=== PATIENT | female | born 1945 | race African-American/Black ===

== ENCOUNTER 2019-12-07 07:47 | Emergency (ER) | payer MEDICARE, MEDICAID ==
[~2019-12-07] VITALS: Ht 165.1 cm; Wt 64.0 kg
[2019-12-07] MEDS ORDERED: IBUPROFEN 600MG TABLET PO ONE (10:30)
[2019-12-07] MEDS ORDERED: TRAMADOL 50MG TABLET PO ONE (10:30)
[2019-12-07 11:59] VITALS: BP 136/72
== END 2019-12-07 12:00 | disposition home or self-care (01) ==
LOC: ER 07:47
DX: S70.02XA Contusion of left hip, initial encounter (principal); E11.9 Type 2 diabetes mellitus without complications; I10 Essential (primary) hypertension; Z96.659 Presence of unspecified artificial knee joint; W01.0XXA Fall on same level from slipping, tripping and stumbling without subsequent striking against object, initial encounter; Y93.89 Activity, other specified; Y92.012 Bathroom of single-family (private) house as the place of occurrence of the external cause
CPT/HCPCS: 73502; 99283

== ENCOUNTER 2020-02-02 15:16 | Emergency (ER) | payer MEDICARE, MEDICAID ==
[~2020-02-02] VITALS: Ht 165.1 cm; Wt 73.0 kg
[2020-02-02 15:27] VITALS: BP 109/52
== END 2020-02-02 17:23 | disposition left against medical advice (07) ==
LOC: ER 15:16
DX: Z53.21 Procedure and treatment not carried out due to patient leaving prior to being seen by health care provider (principal)

== ENCOUNTER 2020-04-11 22:00 | Inpatient (IN) | payer MEDICARE, MEDICAID ==
[~2020-04-11] VITALS: Ht 170.2 cm; Wt 59.0 kg
[2020-04-11 22:45] VITALS: BP 96/57
[2020-04-12] MEDS ORDERED: DEXTROSE 50% WATER 50ML SYRINGE IV PRN (03:45)
[2020-04-12 04:00] VITALS: BP 95/52
[2020-04-12] MEDS: BLOOD SUGAR DIAGNOSTIC STRIP TEST SCH ×4 (07:20→20:33)
[2020-04-12] MEDS: INSULIN LISPRO 100 UNITS/ML SUBCUT SCH ×4 (07:50→20:33)
[2020-04-12] MEDS ORDERED: LORAZEPAM 2MG/ML CPJ IV PRN (08:00)
[2020-04-12] MEDS ORDERED: LORAZEPAM 2MG/ML CPJ IV NR (08:00)
[2020-04-12 08:31] VITALS: BP 99/46
[2020-04-12] MEDS: HYDROCODONE/ACETAMINOPHEN 5/325MG TABLET PO PRN (08:43)
[2020-04-12] MEDS ORDERED: AMLODIPINE 10MG TABLET PO SCH (09:00)
[2020-04-12 11:55] VITALS: BP 111/57
[2020-04-12 12:11] LABS: BASOPHILS % 0.4 % (0.0-2.0); EOSINOPHILS % 0.3 % (0.0-5.0); HEMATOCRIT. 30.2 % (36.0-48.0); HEMOGLOBIN. 10.2 g/dL (12.0-16.0); LYMPHOCYTES % 11.8 % (20.0-50.0); MEAN CORPUSCULAR HEMOGLOBIN 29.7 pg (28.0-32.0); MEAN CORPUSCULAR VOLUME 88.4 fL (81.0-99.0); MEAN PLATELET VOLUME 7.4 fl (7.4-10.4); MONOCYTES % 8.1 % (2.0-8.0); NEUTROPHILS % 79.4 % (40.0-76.0); PLATELET 317 x1000/uL (130-400); RED BLOOD CELL COUNT 3.41 mill/uL (4.2-5.4); RED CELL DISTRIBUTION WIDTH 14.1 % (11.6-14.6)
[2020-04-12 12:17] LABS: PROTHROMBIN TIME 11.3 sec (9.6-11.0)
[2020-04-12 12:18] LABS: CHLORIDE 100 mEq/L (98-107)
[2020-04-12 16:26] VITALS: BP 121/63
[2020-04-12] MEDS ORDERED: MORPHINE SULFATE 2 MG/ML CPJ (NOT FOR IM USE) IV NR (17:00)
[2020-04-12] MEDS: ENOXAPARIN 80MG/0.8ML SYR SUBCUT SCH (20:31)
[2020-04-12 20:53] VITALS: BP 120/61
[2020-04-12 22:15] VITALS: BP_SYST 126; BP_SYST 130; BP_DIAS 63; BP_DIAS 75
[2020-04-13 00:11] VITALS: BP 125/72
[2020-04-13 04:00] VITALS: BP 121/58
[2020-04-13] MEDS ORDERED: LORAZEPAM 2MG/ML CPJ IV NR (06:00)
[2020-04-13] MEDS ORDERED: MORPHINE SULFATE 2 MG/ML CPJ (NOT FOR IM USE) IV NR (06:00)
[2020-04-13] MEDS: BLOOD SUGAR DIAGNOSTIC STRIP TEST SCH ×4 (07:40→20:45)
[2020-04-13] MEDS: INSULIN LISPRO 100 UNITS/ML SUBCUT SCH ×4 (07:40→21:22)
[2020-04-13 08:00] VITALS: BP 108/55
[2020-04-13] MEDS: ENOXAPARIN 80MG/0.8ML SYR SUBCUT SCH ×2 (08:39→20:45)
[2020-04-13] MEDS: DOCUSATE SODIUM 100MG CAPSULE PO SCH (08:39)
[2020-04-13] MEDS ORDERED: HYDROCHLOROTHIAZIDE 12.5MG CAPSULE PO SCH (09:00)
[2020-04-13] MEDS ORDERED: LISINOPRIL 20MG TABLET PO SCH (09:00)
[2020-04-13 12:00] VITALS: BP 133/62
[2020-04-13 16:00] VITALS: BP 126/82
[2020-04-13] MEDS: HYDROCODONE/ACETAMINOPHEN 5/325MG TABLET PO PRN (17:37)
[2020-04-13] MEDS ORDERED: ENOXAPARIN 40MG/0.4ML SYR SUBCUT SCH (18:00)
[2020-04-14] VITALS (15 sets, daily range): BP systolic 90–167; BP diastolic 54–86
[2020-04-14] MEDS: BLOOD SUGAR DIAGNOSTIC STRIP TEST SCH ×4 (06:35→20:44)
[2020-04-14] MEDS: INSULIN LISPRO 100 UNITS/ML SUBCUT SCH ×4 (07:50→20:38)
[2020-04-14] MEDS ORDERED: MORPHINE SULFATE 2 MG/ML CPJ (NOT FOR IM USE) IV PRN (08:30)
[2020-04-14] MEDS ORDERED: MORPHINE SULFATE 2 MG/ML CPJ (NOT FOR IM USE) IV SCH (08:30)
[2020-04-14] MEDS: ENOXAPARIN 80MG/0.8ML SYR SUBCUT SCH ×2 (08:44→20:42)
[2020-04-14] MEDS: DOCUSATE SODIUM 100MG CAPSULE PO SCH (09:00)
[2020-04-14] MEDS ORDERED: LIDOCAINE HCL 1% 20ML VIAL (Pyxis) INJ ONE (11:14)
[2020-04-14] MEDS ORDERED: IOHEXOL-300 100 ML BOTTLE ONE (11:14)
[2020-04-14] MEDS ORDERED: SODIUM BICARBONATE 4% (2.4MEQ) 5ML VIAL IV ONE (11:14)
[2020-04-14] MEDS ORDERED: CEFAZOLIN 1000MG PREMIX 50 ML IV ONE ×2 (11:15→11:17)
[2020-04-14] MEDS ORDERED: FENTANYL CITRATE/PF 50MCG/ML 2ML VIAL ONE (11:17)
[2020-04-14] MEDS ORDERED: FENTANYL CITRATE/PF 50MCG/ML 2ML VIAL IV ONE (12:00)
[2020-04-14] MEDS: HYDROCODONE/ACETAMINOPHEN 5/325MG TABLET PO PRN ×2 (14:03→20:39)
[2020-04-14 18:11] LABS: CLARITY URINE CLEAR (CLEAR); COLOR URINE YELLOW (YELLOW); KETONES URINE 1+ (NEGATIVE); LEUKOCYTE ESTERASE URINE TRACE (NEGATIVE); NITRITE URINE NEGATIVE (NEGATIVE); OCCULT BLOOD URINE NEGATIVE (NEGATIVE); PH URINE 5.5 (4.5-8.0); PROTEIN URINE NEGATIVE (NEGATIVE); SPECIFIC GRAVITY URINE 1.027 (1.005-1.030); UROBILINOGEN URINE 0.2 E.U./dL (0.2-1.0)
[2020-04-15] VITALS: BP 112/62
[2020-04-15 04:00] VITALS: BP 109/70
[2020-04-15] MEDS: BLOOD SUGAR DIAGNOSTIC STRIP TEST SCH ×3 (07:20→20:16)
[2020-04-15 07:33] LABS: BASOPHILS % 0.5 % (0.0-2.0); EOSINOPHILS % 0.5 % (0.0-5.0); HEMATOCRIT. 30.1 % (36.0-48.0); HEMOGLOBIN. 10.4 g/dL (12.0-16.0); LYMPHOCYTES % 20.1 % (20.0-50.0); MEAN CORPUSCULAR HEMOGLOBIN 30.2 pg (28.0-32.0); MEAN CORPUSCULAR VOLUME 87.6 fL (81.0-99.0); MEAN PLATELET VOLUME 7.8 fl (7.4-10.4); MONOCYTES % 9.7 % (2.0-8.0); NEUTROPHILS % 69.2 % (40.0-76.0); PLATELET 311 x1000/uL (130-400); RED BLOOD CELL COUNT 3.43 mill/uL (4.2-5.4); RED CELL DISTRIBUTION WIDTH 13.7 % (11.6-14.6)
[2020-04-15] MEDS: INSULIN LISPRO 100 UNITS/ML SUBCUT SCH ×3 (07:50→21:00)
[2020-04-15 07:58] LABS: CHLORIDE 98 mEq/L (98-107)
[2020-04-15 08:00] VITALS: BP 163/55
[2020-04-15] MEDS: ENOXAPARIN 80MG/0.8ML SYR SUBCUT SCH ×2 (08:00→20:00)
[2020-04-15] MEDS: DOCUSATE SODIUM 100MG CAPSULE PO SCH (10:52)
[2020-04-15 12:00] VITALS: BP 158/97
[2020-04-15 16:00] VITALS: BP 130/82
[2020-04-15] MEDS: HYDROCODONE/ACETAMINOPHEN 5/325MG TABLET PO PRN (17:05)
[2020-04-16] VITALS: BP 107/51
[2020-04-16 04:00] VITALS: BP 166/60
[2020-04-16 06:10] LABS: CHLORIDE 101 mEq/L (98-107)
[2020-04-16 06:30] LABS: BASOPHILS % 0.5 % (0.0-2.0); EOSINOPHILS % 0.8 % (0.0-5.0); HEMOGLOBIN. 9.8 g/dL (12.0-16.0); LYMPHOCYTES % 18.3 % (20.0-50.0); MEAN CORPUSCULAR HEMOGLOBIN 30.4 pg (28.0-32.0); MEAN CORPUSCULAR VOLUME 87.1 fL (81.0-99.0); MEAN PLATELET VOLUME 7.3 fl (7.4-10.4); MONOCYTES % 9.3 % (2.0-8.0); NEUTROPHILS % 71.1 % (40.0-76.0); PLATELET 299 x1000/uL (130-400); RED BLOOD CELL COUNT 3.21 mill/uL (4.2-5.4); RED CELL DISTRIBUTION WIDTH 13.9 % (11.6-14.6)
[2020-04-16] MEDS: BLOOD SUGAR DIAGNOSTIC STRIP TEST SCH ×4 (06:32→20:25)
[2020-04-16] MEDS: INSULIN LISPRO 100 UNITS/ML SUBCUT SCH ×4 (06:32→20:56)
[2020-04-16] MEDS ORDERED: MORPHINE SULFATE 10 MG/ML CPJ ONE (06:51)
[2020-04-16] MEDS ORDERED: EPINEPHRINE 1:1000 1 MG/ML AMP ONE (06:51)
[2020-04-16] MEDS ORDERED: KETOROLAC 30MG/ML VIAL ONE (06:51)
[2020-04-16] MEDS ORDERED: ROPIVACAINE HCL 10MG/ML 20 ML VIAL EPI ONE (06:51)
[2020-04-16] MEDS ORDERED: NORMAL SALINE 0.9% 10 ML SYR ONE (06:52)
[2020-04-16] MEDS ORDERED: VANCOMYCIN HCL 1 GM/VIAL ONE (06:52)
[2020-04-16] MEDS ORDERED: MORPHINE SULFATE/PF 1MG/ML 10ML AMP ONE (06:52)
[2020-04-16] MEDS ORDERED: TRANEXAMIC ACID 1,000 MG/10 ML IV ONE ×3 (07:00)
[2020-04-16] MEDS ORDERED: TRANEXAMIC ACID 1,000 MG in SODIUM CHLORIDE 0.9% 100 ML IV NR (07:00)
[2020-04-16] MEDS ORDERED: BACITRACIN 50,000 UNITS/VIAL ONE (07:12)
[2020-04-16] MEDS ORDERED: FENTANYL CITRATE/PF 50MCG/ML 2ML VIAL ONE (08:32)
[2020-04-16] MEDS ORDERED: MIDAZOLAM HCL 2 MG/2 ML VIAL ONE (08:34)
[2020-04-16] MEDS ORDERED: PHENYLEPHRINE HCL 10 MG/ML 1ML (IV VIAL) IV ONE (08:36)
[2020-04-16] MEDS ORDERED: ESMOLOL HCL 10MG/ML 10ML VIAL IV ONE (08:38)
[2020-04-16] MEDS ORDERED: ROCURONIUM BROMIDE 10MG/ML VIAL 5ML IV ONE (08:44)
[2020-04-16] MEDS ORDERED: LIDOCAINE HCL/PF 1% 10 MG/ML 5ML VIAL ONE (08:48)
[2020-04-16] MEDS ORDERED: PROPOFOL 200MG/20ML VIAL IV ONE (08:48)
[2020-04-16] MEDS ORDERED: EPHEDRINE SULFATE 50MG/ML VIAL ONE (09:14)
[2020-04-16] MEDS ORDERED: GLYCOPYRROLATE 0.2 MG/ML 2ML VIAL ONE (11:08)
[2020-04-16] MEDS ORDERED: DEXAMETHASONE 4MG/ML 1ML VIAL ONE (11:27)
[2020-04-16] MEDS ORDERED: ONDANSETRON HCL 4MG/2ML INJ ONE (11:28)
[2020-04-16] MEDS ORDERED: KETOROLAC 30MG/ML VIAL IV PRN (11:30)
[2020-04-16] MEDS ORDERED: CEFAZOLIN 1000MG PREMIX 50 ML IV SCH (11:30)
[2020-04-16] MEDS: CEFAZOLIN 1000MG PREMIX 50 ML IV SCH ×2 (11:30→18:55)
[2020-04-16] MEDS ORDERED: NEOSTIGMINE METHYLSULFATE 1MG/ML 10 ML VIAL ONE (11:53)
[2020-04-16 12:30] VITALS: BP 158/69
[2020-04-16] MEDS: HYDROMORPHONE HCL/PF 2MG/ML CPJ IV PRN ×2 (12:59→13:12)
[2020-04-16 16:09] VITALS: BP 112/52
[2020-04-16] MEDS: SENNOSIDES/DOCUSATE SOD 8.6/50MG TABLET PO SCH (18:57)
[2020-04-16 20:35] VITALS: BP 102/45
[2020-04-17 00:01] VITALS: BP 103/50
[2020-04-17] MEDS: CEFAZOLIN 1000MG PREMIX 50 ML IV SCH ×3 (02:32→20:19)
[2020-04-17 04:00] VITALS: BP 96/49
[2020-04-17] MEDS: BLOOD SUGAR DIAGNOSTIC STRIP TEST SCH ×4 (06:37→21:03)
[2020-04-17 06:40] LABS: HEMATOCRIT. 24.1 % (36.0-48.0); HEMOGLOBIN. 8.2 g/dL (12.0-16.0); MEAN CORPUSCULAR HEMOGLOBIN 29.9 pg (28.0-32.0); MEAN CORPUSCULAR VOLUME 87.7 fL (81.0-99.0); MEAN PLATELET VOLUME 7.6 fl (7.4-10.4); PLATELET 246 x1000/uL (130-400); RED BLOOD CELL COUNT 2.75 mill/uL (4.2-5.4); RED CELL DISTRIBUTION WIDTH 13.6 % (11.6-14.6)
[2020-04-17 07:27] LABS: CHLORIDE 107 mEq/L (98-107)
[2020-04-17] MEDS: INSULIN LISPRO 100 UNITS/ML SUBCUT SCH ×4 (07:50→21:00)
[2020-04-17 08:07] VITALS: BP 106/46
[2020-04-17] MEDS: HYDROCODONE/ACETAMINOPHEN 5/325MG TABLET PO PRN (08:42)
[2020-04-17] MEDS: SENNOSIDES/DOCUSATE SOD 8.6/50MG TABLET PO SCH ×2 (08:43→16:34)
[2020-04-17 09:58] LABS: PLATELET ESTIMATE NORMAL
[2020-04-17 12:07] VITALS: BP 100/48
[2020-04-17 16:07] VITALS: BP 108/42
[2020-04-17 20:18] VITALS: BP 106/46
[2020-04-18 00:42] VITALS: BP 97/52
[2020-04-18] MEDS: CEFAZOLIN 1000MG PREMIX 50 ML IV SCH ×2 (03:33→11:49)
[2020-04-18 04:00] VITALS: BP 120/57
[2020-04-18] MEDS: BLOOD SUGAR DIAGNOSTIC STRIP TEST SCH ×4 (06:47→21:49)
[2020-04-18 06:59] LABS: BASOPHILS % 0.2 % (0.0-2.0); EOSINOPHILS % 0.1 % (0.0-5.0); HEMOGLOBIN. 8.1 g/dL (12.0-16.0); MEAN CORPUSCULAR HEMOGLOBIN 29.6 pg (28.0-32.0); MEAN CORPUSCULAR VOLUME 87.1 fL (81.0-99.0); MEAN PLATELET VOLUME 7.5 fl (7.4-10.4); MONOCYTES % 8.6 % (2.0-8.0); NEUTROPHILS % 81.1 % (40.0-76.0); PLATELET 256 x1000/uL (130-400); RED BLOOD CELL COUNT 2.75 mill/uL (4.2-5.4)
[2020-04-18 07:34] LABS: CHLORIDE 102 mEq/L (98-107)
[2020-04-18 08:00] VITALS: BP 142/91
[2020-04-18] MEDS: SENNOSIDES/DOCUSATE SOD 8.6/50MG TABLET PO SCH ×2 (08:17→17:00)
[2020-04-18] MEDS: HYDROCODONE/ACETAMINOPHEN 5/325MG TABLET PO PRN (10:11)
[2020-04-18] MEDS ORDERED: DILTIAZEM HCL 30MG TABLET PO SCH (11:00)
[2020-04-18] MEDS ORDERED: DIGOXIN 500MCG/2ML AMP IV PRN (11:15)
[2020-04-18] MEDS: INSULIN LISPRO 100 UNITS/ML SUBCUT SCH ×3 (11:54→21:49)
[2020-04-18 12:00] VITALS: BP 127/78
[2020-04-18] MEDS ORDERED: BISACODYL 5MG TABLET PO PRN (14:30)
[2020-04-18 16:00] VITALS: BP 150/78
[2020-04-18] MEDS: APIXABAN 5 MG TABLET PO SCH (18:09)
[2020-04-18] MEDS: DILTIAZEM HCL 30MG TABLET PO SCH (18:09)
[2020-04-18 20:00] VITALS: BP 104/48
[2020-04-18] MEDS: INSULIN GLARGINE UD 100 UNITS/ML SYR SUBCUT SCH (21:50)
[2020-04-19] VITALS: BP 121/54
[2020-04-19] MEDS: DILTIAZEM HCL 30MG TABLET PO SCH ×4 (01:23→17:56)
[2020-04-19] MEDS: METOPROLOL TARTRATE 25MG TABLET PO SCH ×3 (03:53→20:22)
[2020-04-19 04:00] VITALS: BP 101/58
[2020-04-19] MEDS: BLOOD SUGAR DIAGNOSTIC STRIP TEST SCH ×4 (06:23→20:22)
[2020-04-19 08:00] VITALS: BP 109/38
[2020-04-19] MEDS: SENNOSIDES/DOCUSATE SOD 8.6/50MG TABLET PO SCH ×2 (10:26→16:45)
[2020-04-19] MEDS: APIXABAN 5 MG TABLET PO SCH (10:27)
[2020-04-19] MEDS: INSULIN LISPRO 100 UNITS/ML SUBCUT SCH ×4 (10:36→20:21)
[2020-04-19 12:00] VITALS: BP 111/45
[2020-04-19 16:00] VITALS: BP 115/45
[2020-04-19] MEDS ORDERED: APIXABAN 5 MG TABLET PO SCH (17:00)
[2020-04-19] MEDS ORDERED: DIGOXIN 250MCG TABLET PO SCH (18:00)
[2020-04-19 20:00] VITALS: BP 128/42
[2020-04-19] MEDS: INSULIN GLARGINE UD 100 UNITS/ML SYR SUBCUT SCH (21:19)
== END 2020-04-19 21:30 | DRG 470 ==
LOC: 6WST 22:00
PROVIDERS: ADMIT Internal Medicine Critical Care Medicine; ATTEND Internal Medicine Critical Care Medicine
PROC: 06H03DZ Insertion of Intraluminal Device into Inferior Vena Cava, Percutaneous Approach (ICD-10-PCS; 2020-04-14)
PROC: B549ZZA Ultrasonography of Inferior Vena Cava, Guidance (ICD-10-PCS; 2020-04-14)
PROC: B5191ZA Fluoroscopy of Inferior Vena Cava using Low Osmolar Contrast, Guidance (ICD-10-PCS; 2020-04-14)
PROC: 0SRB01A Replacement of Left Hip Joint with Metal Synthetic Substitute, Uncemented, Open Approach (ICD-10-PCS; principal; 2020-04-16)
DX: S72.012A Unspecified intracapsular fracture of left femur, initial encounter for closed fracture (principal); I82.412 Acute embolism and thrombosis of left femoral vein; I48.92 Unspecified atrial flutter; I82.432 Acute embolism and thrombosis of left popliteal vein; G89.29 Other chronic pain; E11.621 Type 2 diabetes mellitus with foot ulcer; L97.529 Non-pressure chronic ulcer of other part of left foot with unspecified severity; D63.8 Anemia in other chronic diseases classified elsewhere; R00.0 Tachycardia, unspecified; I49.1 Atrial premature depolarization; I48.91 Unspecified atrial fibrillation; Z96.653 Presence of artificial knee joint, bilateral; I11.9 Hypertensive heart disease without heart failure; Z20.828 Contact with and (suspected) exposure to other viral communicable diseases; Z91.81 History of falling; Z83.3 Family history of diabetes mellitus; Z82.49 Family history of ischemic heart disease and other diseases of the circulatory system; Z82.3 Family history of stroke; Z86.718 Personal history of other venous thrombosis and embolism; Z79.01 Long term (current) use of anticoagulants; Z79.4 Long term (current) use of insulin; Z90.710 Acquired absence of both cervix and uterus; J30.9 Allergic rhinitis, unspecified; X58.XXXA Exposure to other specified factors, initial encounter; Y93.89 Activity, other specified; Y92.89 Other specified places as the place of occurrence of the external cause; Y99.8 Other external cause status
CPT/HCPCS: 36415; 37191; 71045; 72170; 72195; 73502; 73522; 73552; 76000; 80048; 81003; 82962; 83036; 84484; 85025; 86850; 86900; 86920; 88300; 88305; 88311; 93005; 93306; 93970; 97116; 97162; 97166; 97530; 99152; 99153; C1769; C1776; C1880; J0690; J1100; J1170; J1644; J1650; J1815; J1885; J2060; J2250; J2270; J2274; J2370; J2405; J2704; J2710; J2795; J3010; J3370; J3490; J7050; Q9967; G0500; U0003-CS

== ENCOUNTER → 2023-10-11 | Day surgery (SDC) | payer MEDICARE, MEDICAID ==
[~2023-10-11] VITALS: Ht 165.1 cm; Wt 75.7 kg
[~2023-10-11] MED LIST: ACETAMINOPHEN 325MG TABLET PO PRN; APIX2.5T PO; ATROPINE SULFATE 1MG/10ML SYR IV PRN; DIPHENHYDRAMINE 50MG/ML VIAL ONE; DOCU-286 PO; FENTANYL CITRATE/PF 50MCG/ML 2ML VIAL ONE; HEPARIN 1000 UNITS/ML 10ML ONE; HYDR-4001 PO; HYDRALAZINE 20MG/ML VIAL ONE; IODIXANOL 320MG/ML 100 ML BOTTLE IV ONE; LIDOCAINE HCL 1% 20ML VIAL (Pyxis) INJ ONE; LINA5TAB PO; METO25TA6 PO; MIDAZOLAM HCL 2 MG/2 ML VIAL ONE; NIFE90TA2 PO; ONDANSETRON HCL 4MG/2ML INJ IV PRN; TRIA1TAB94 PO
== END | disposition home or self-care (01) ==
LOC: ANGIO 06:47
PROVIDERS: ATTEND Specialist
DX: I73.9 Peripheral vascular disease, unspecified (principal); I10 Essential (primary) hypertension; E11.9 Type 2 diabetes mellitus without complications; E78.5 Hyperlipidemia, unspecified; I48.0 Paroxysmal atrial fibrillation; Z79.899 Other long term (current) drug therapy; Z98.890 Other specified postprocedural states; Z83.3 Family history of diabetes mellitus
CPT/HCPCS: 82962; 36246; 75710; C1893; C1760; C1769 ×2; C1725; C1887; J3010; Q9967; J1200; J1644 ×2; J0360; J3490; J2250; Z7610 ×6

== ENCOUNTER → 2025-02-25 | Outpatient (CLI) | payer MEDICARE, MEDICAID ==
[~2025-02-25] MED LIST changes: -ACETAMINOPHEN 325MG TABLET PO PRN; -ATROPINE SULFATE 1MG/10ML SYR IV PRN; -DIPHENHYDRAMINE 50MG/ML VIAL ONE; -FENTANYL CITRATE/PF 50MCG/ML 2ML VIAL ONE; -HEPARIN 1000 UNITS/ML 10ML ONE; -HYDRALAZINE 20MG/ML VIAL ONE; -IODIXANOL 320MG/ML 100 ML BOTTLE IV ONE; -LIDOCAINE HCL 1% 20ML VIAL (Pyxis) INJ ONE; -MIDAZOLAM HCL 2 MG/2 ML VIAL ONE; -ONDANSETRON HCL 4MG/2ML INJ IV PRN
[2025-02-25 12:46] LABS: BASOPHILS % 0.7 % (0.0-2.0); EOSINOPHILS % 0.7 % (0.0-5.0); HEMATOCRIT. 33.8 % (36.0-48.0); HEMOGLOBIN. 11.1 g/dL (12.0-16.0); LYMPHOCYTES % 26.2 % (20.0-50.0); MEAN CORPUSCULAR HEMOGLOBIN 28.9 pg (28.0-32.0); MEAN CORPUSCULAR HGB CONC 32.8 g/dL (31.0-37.0); MEAN CORPUSCULAR VOLUME 88.3 fL (81.0-99.0); NEUTROPHILS % 65.4 % (40.0-76.0); PLATELET 213 x1000/uL (130-400); RED BLOOD CELL COUNT 3.82 mill/uL (4.2-5.4); RED CELL DISTRIBUTION WIDTH 14.5 % (11.6-14.6); WHITE BLOOD COUNT 5.5 x1000/uL (4.5-11.0)
[2025-02-25 12:59] LABS: CHLORIDE 105 mEq/L (98-107); SODIUM 143 mEq/L (136-145)
[2025-02-25 13:00] LABS: CALCIUM 9.6 mg/dL (8.7-10.4); CARBON DIOXIDE 26 mEq/L (21-32)
[2025-02-25 13:01] LABS: PARTIAL THROMBOPLASTIN TIME 25.8 sec (23.4-31.0); PROTHROMBIN TIME 10.5 sec (9.6-11.0)
[2025-02-25 13:05] LABS: CREATININE 1.3 mg/dL (0.6-1.0); GLUCOSE 115 mg/dL (70-105); UREA NITROGEN BLOOD 15 mg/dL (9-23)
[2025-02-25 13:07] LABS: ALANINE AMINOTRANSFERASE 18 IU/L (10-49); ALBUMIN 4.1 g/dL (3.2-4.8); ASPARTATE AMINOTRANSFERASE 27 IU/L (<34); BILIRUBIN TOTAL 0.3 mg/dL (0.1-1.0)
[2025-02-25 13:08] LABS: PROTEIN TOTAL 7.5 g/dL (6.0-8.3)
== END | disposition home or self-care (01) ==
LOC: RAD 12:13
PROVIDERS: ATTEND Internal Medicine Critical Care Medicine
DX: J98.6 Disorders of diaphragm (principal); R05.9 Cough, unspecified; M19.012 Primary osteoarthritis, left shoulder; I10 Essential (primary) hypertension; D50.9 Iron deficiency anemia, unspecified
CPT/HCPCS: 36415; 71046; 80053; 85025